=== PATIENT | female | born 1965 | race Caucasian/White ===

== ENCOUNTER 2020-04-12 19:37 | Observation (INO) | payer OTHER, SELFPAY ==
[2020-04-12 18:18] VITALS: BMI 26.0
[2020-04-12 18:20] VITALS: BP 115/63; PULSE 66; RESP 18; TEMP 36.2; O2SAT 97
[2020-04-12 18:33] VITALS: BMI 26.0
--- NOTE | 2020-04-12 18:49 | EKG12_ITS ---
Test Reason : CP ADMISSION Blood Pressure : / mmHG Vent. Rate : 069 BPM Atrial Rate : 069 BPM P-R Int : 120 ms QRS Dur : 084 ms QT Int : 422 ms P-R-T Axes : 052 -13 012 degrees QTc Int : 452 ms Normal sinus rhythm with sinus arrhythmia Septal infarct , age undetermined Abnormal ECG No previous ECGs available Confirmed by JORGE BLANKENSHIP, WILMAR ([id number]), editor news ROQUE FERREIRA ([id number]) on 04/16/2020 9:17:32 AM Referred By: Malathi Blackman Confirmed By:KEREN PATEL MD
[2020-04-12 19:00] VITALS: PULSE 60
--- NOTE | 2020-04-12 19:28 | HP.PCM_ITS ---
History of Present Illness Date of Admission: 04/12/20 Chief Complaint: chest pain The patient is a 54 year old F with a past medical history of hyperlipidemia. She was admitted as a direct transfer from outside hospital on 04/12/2020 with a complaint of chest pain. Chest pain had been going on for a few days and gradually worsening. It was pressure-like, retrosternal, with no aggravating factors were relieved by rest and sublingual nitro. Has not had such symptoms before but was worried because she has a strong family history of heart disease on her paternal side and also has a history of smoking. On admission, vitals were essentially unremarkable and she was saturating at 97% on room air. Initia l troponin done at outside hospital was negative. She was transferred for cardiac workup. She is being admitted to be managed for chest pain, to r/o ACS [] Past Medical History Allergies No Known Allergies Allergy (Verified 04/12/20 18:23) Surgical History: no surgical history Psychiatric History: No pertinent psych hx NATIONAL ACCOUNT REPRESENTATIVE History: No pertinent NATIONAL ACCOUNT REPRESENTATIVE history Lives: With Family Smoking Status: Current every day smoker Tobacco Use: Cigarettes Alcohol: Occasional Drugs: None - *Family History Paternal History Items: Cancer, High Cholesterol, Heart Disease, Hypertension Maternal History Items: Hypertension Review of Systems Constitutional: Denies: Chills, Fever, Malaise, Weakness, Weight Change Eyes: Denies: Blurred vision HEENT: Denies: Head Aches, Sinus Congestion, Sinus Drainage Cardiovascular: Reports: Chest Pain, Chest Pressure. Denies: Chest Tightness, Edema, Heaviness, Light Headedness, Orthopnea, Palpitations, Paroxysmal Noc. Dyspnea Respiratory: Denies: Cough, Shortness of Breath, Shortness of breath at rest, Shortness of breath upon exertion, Sputum production Gastrointestinal: Denies: Abdominal Pain, Nausea, Vomiting Genitourinary: Denies: Dysuria Musculoskeletal: Denies: Joint Pain, Joint Tenderness Skin: Denies: Rash, Wounds Neurological: Denies: Numbness, Tingling, Focal weakness Psychiatric: Denies: Anxiety, Depression, Homicidal Ideations, Suicidal Ideations Hematologic/ Lymphatic: Denies: Easy Bruising, Easy Bleeding VTE Information - Inpt Only VTE Present on Admission: No VTE Pharm Prophylaxis ordered?: Yes - Physical Exam Vitals/I&O's: Vital Signs Temp Pulse Resp BP Pulse Ox 97.2 F L 66 18 115/63 97 04/12/20 18:20 04/12/20 18:20 04/12/20 18:20 04/12/20 18:20 04/12/20 18:20 Oxygen Delivery Method Room Air Weight: 147 lb Body Mass Index (BMI) 26.0 General: Alert, Oriented x3, Cooperative HEENT: Atraumatic, PERRLA, EOMI, Normocephalic Oral: Moist Mucosa Neck: Supple, No JVD, Negative Carotid Bruits Lungs: Clear to auscultation, Normal air movement, No rhonchi, No wheeze, No rales Cardiovascular: Regular rate, Regular Rhythm, Normal S1, Normal S2, No murmurs Abdomen: Bowel Sounds Present, Soft, Non Tender, Non-Distended, No Hepato- splenomegaly Extremities: No clubbing, No cyanosis, No edema, Capillary Refill Less than 3 Seconds Skin: No rashes, No breakdown Musculoskeletal: No Tenderness to Palpation of Joints or Extremities Lymphatic: No Cervical, Supraclavicular, or Inguinal Adenopathy Neurological: Cranial nerves II-XII grossly intact Psych/Mental Status: Normal Affect, Appropriate, Alert and oriented to time, place, person, mood and affect Current Medications Sodium Chloride () 10 - 40 ml IV UD PRN PRN Reason: SALINE FLUSH Assessment/Plan 54 y/o admitted with a complaint of chest pain to r/o ACS 1. Chest pain rule out ACS. * admit To PCU with telemetry * Cycle troponins x3. EKG done on admission showed no acute ST changes and showed normal sinus rhythm. * Sublingual nitroglycerin PRN. P.o. aspirin 81 mg daily. * For stress test tomorrow if troponins are negative. * 2. Hyperlipidemia * She was told she has hyperlipidemia but she is not on any medication for it. * Check lipid panel. * 3. Nicotine dependence: Smokes about 1 pack daily. Counseled to quit. Nicotine patch 21 mg daily. DVT prophylaxis: SCDs CODE STATUS: Full code * Patient counseled extensively about different types of CODE STATUS including full code, DNR CCA and DNR CCA. Patient elects to be full code. Total zwii-ge-axmy time 17 minutes. OBSV E&M: 85684 Initial observation care L2 Procedures: 46827 Advncd Care Plan 30 Min
[2020-04-12] MEDS: oxyCODONE 5 MG Tablet PO (20:48)
[2020-04-12 22:02] VITALS: BP 117/49; PULSE 77; RESP 18; TEMP 36.6; O2SAT 97
[2020-04-12] MEDS: MELATONIN 3 MG TABLET PO (22:06)
[2020-04-13 01:57] LABS: Absolute Lymphocyte Count 2.85 X10^3/uL (0.83-4.51); Basophil# 0.06 X10^3/uL; Basophil% 0.7 % (0-1); Eosinophil# 0.22 X10^3/uL; Eosinophils% 2.5 % (0-5); Hematocrit 37.2 % (37-47); Hemoglobin 12.2 g/dL (12.0-15.0); Lymphocyte # 2.85 X10^3/ul (4.0); Lymphocyte % 32.4 % (19-41); Mean Corp Hgb Conc 32.8 g/dL (32-36); Mean Corpuscular Hgb 30.2 pg (27.0-32.0); Mean Corpuscular Volume 92.1 fL (81-99); Mean Platelet Vol. 11.2 fl (6.2-12.0); Monocyte# 0.67 X10^3/uL; Monocyte% 7.6 % (0-10); NRBC Flagged by Analyzer 0 % (0-5); Neutrophil # 4.96 X10^3/uL (2.7-7.7); Neutrophil % 56.5 % (47-70); Platelet Count 269 K/mm3 (150-450); RBC Distribution Width CV 12.4 % (11.6-14.6); RBC Distribution Width SD 41.4 fl (35.1-43.9); Red Blood Count 4.04 M/mm3 (4.2-5.4); White Blood Count 8.8 K/mm3 (4.4-11.0)
[2020-04-13] MEDS: oxyCODONE 5 MG Tablet PO (01:57)
[2020-04-13 02:07] LABS: Anion Gap 5 (5-15); BUN 14 mg/dL (7-18); BUN/Creat Ratio 21.5 RATIO (10-20); Calcium,Total 8.5 mg/dL (8.5-10.1); Chloride 110 mmol/L (98-107); Creatinine, Serum 0.65 mg/dL (0.55-1.02); EST Glomerular Filtration Rate 100 mL/min (>60); Est Glom Filt Rate - Afr Amer 121 mL/min (>60); Glucose 119 mg/dL (74-106); Potassium 3.7 mmol/L (3.5-5.1); Sodium Level 141 mmol/L (136-145)
[2020-04-13 03:00] VITALS: PULSE 59
[2020-04-13 04:00] VITALS: BP 112/56; PULSE 60; RESP 18; TEMP 36.8; O2SAT 96
--- NOTE | 2020-04-13 05:55 | EKG12_ITS ---
Test Reason : C.P. ROUTINE A.M. Blood Pressure : / mmHG Vent. Rate : 061 BPM Atrial Rate : 061 BPM P-R Int : 140 ms QRS Dur : 084 ms QT Int : 424 ms P-R-T Axes : 059 -20 026 degrees QTc Int : 426 ms Normal sinus rhythm Septal infarct , age undetermined Abnormal ECG When compared with ECG of 12-APR-2020 19:03, MANUAL COMPARISON REQUIRED, DATA IS UNCONFIRMED Confirmed by JORGE BLANKENSHIP, WILMAR ([id number]), news assignment editor ROQUE FERREIRA ([id number]) on 04/16/2020 9:17:14 AM Referred By: Malathi Blackman Confirmed By:KEREN PATEL MD
[2020-04-13 06:52] VITALS: BP 145/75; PULSE 63; PULSE 66; RESP 20; TEMP 36.8; O2SAT 99
[2020-04-13] MEDS: 0.9% Saline Lock 10 ML Syringe IV (06:57)
[2020-04-13] MEDS: Ondansetron 4 MG/2 ML Vial IV (06:58)
[2020-04-13] MEDS: Aspirin E.C. 81 MG Tablet PO (07:00)
--- NOTE | 2020-04-13 12:31 | STRESSREP_ITS ---
Stress Test Report Date: 04-13-2020 Procedure: Exercise tolerance test/imaging study Indications: Chest pain Consent: Per the patient Procedure: The patient exercised on a Kaleb protocol for 8 minutes and 30 seconds completing Stage II and 2 minutes and 30 seconds of Stage III achieving a peak heart rate of 133 bpm (80 % predicted maximal heart rate) with a peak blood pressure 170/72 mmHg and a peak MET capacity of 9 METs. The baseline ECG demonstrated sinus rhythm; anteroseptal CO pattern of indeterminate age cannot be excluded. The peak exercise ECG demonstrated somatic/motion artifact with [id number] ST segment variability. There were no cardiac dysrhythmias pretest, during exercise, or recovery. The functional capacity was considered good. There was chest discomfort pretest, during exercise, and recovery. The examination was discontinued secondary to dyspnea. Impression: 1. Technically adequate (percent predicted maximal heart rate greater than 85%) exercise tolerance test 2. Peak exercise ECG with somatic/motion artifact with [id number] ST segment variability 3. There were no cardiac dysrhythmias pretest, during exercise, or recovery 4. Nuclear images pending Myocardial perfusion imaging study: Technique: The patient was injected with 12.0 mCi of technetium 99m Cardiolite and subsequently rest SPECT Cardiolite nuclear imaging was obtained in the horizontal long, vertical long, and short axis views. The patient exercised on a Kaleb protocol for 8 minutes and 30 seconds completing Stage II and 2 minutes and 30 seconds of Stage III achieving a peak heart rate of 133 bpm (80 % predicted maximal heart rate) with a peak blood pressure 170/72 mmHg and a peak MET capacity of 9 METs. The patient was injected with 33.3 mCi of technetium 99m Cardiolite and subsequently stress SPECT Cardiolite nuclear imaging was obtained in the horizontal long, vertical long, and short axis views. A gated Cardiolite study at peak stress was obtained. Interpretation: Rest and stress SPECT Cardiolite nuclear imaging status post realignment, normalization, and attenuation correction, demonstrates the appearance of extrac ardiac/gastrointestinal tracer uptake near the inferior segments which appears to be somewhat more prominent at rest as opposed to stress and otherwise appears to demonstrate relative uniform tracer uptake and myocardial perfusion appearing within normal limits. There is end systolic thickening and brightening. The gated Cardiolite study demonstrates myocardial thickening and inward wall motion. The reported LVEF is 83 %. Impression: 1. Rest and stress SPECT Cardiolite nuclear imaging demonstrate myocardial perfusion changes appearing compatible with extracardiac/gastrointestinal tracer uptake near the inferior segments which appears to be somewhat more prominent at rest as opposed to stress and otherwise appears to demonstrate relative uniform tracer uptake and myocardial perfusion appearing within normal limits. 2. The gated Cardiolite study reports an LVEF of 83 %. This note was generated with [employer] software. It may contain incorrect words, spelling, and punctuation that were not noted in checking the note before signing.
[2020-04-13 14:00] VITALS: BP 134/76; PULSE 65; RESP 18; TEMP 36.6; O2SAT 94
--- NOTE | 2020-04-13 14:19 | DCINST_ITS ---
You will use the following diet at home:: No restrictions Your food should be the consistency of: Regular Your liquids should be the consistency of: Regular/Thin Discharge Activity: Return to Normal Activity Allergies/Adverse Reactions: Allergies No Known Allergies Allergy (Verified 04/12/20 18:23) Medications to take at Discharge Acetaminophen [Tylenol Tablet] 650 mg PO Q6H PRN PRN tab 04/13/20 Primary Care Physician: Care Physician,No Primary [Primary Care Provider] - Please follow up with your Primary Care Physician in: 1-2 weeks Test Results: Test results from this visit will be discussed in further detail at your follow- up appointment, if applicable. Proposed Discharge Date: 04/13/20
--- NOTE | 2020-04-13 14:20 | PCM.DC.SUM ---
<Pool Alejandro - Last Filed: 04/13/20 14:20> Discharge Date and Diagnosis Date of Admission: 04/12/20 Date of Discharge: 04/13/20 - Primary Discharge Diagnosis Acute Problems: Chest pain and back pain - musculoskeletal Hospital Course and Treatment Imaging Results: 04/13/20 05:55 Nuclear Stress Test - Treadmil [NM] AM (NON MEDS) Impression: 1. Rest and stress SPECT Cardiolite nuclear imaging demonstrate myocardial perfusion changes appearing compatible with extracardiac/gastrointestinal tracer uptake near the inferior segments which appears to be somewhat more prominent at rest as opposed to stress and otherwise appears to demonstrate relative uniform tracer uptake and myocardial perfusion appearing within normal limits. 2. The gated Cardiolite study reports an LVEF of 83 %. Operations: None Procedures: Stress test Summary of Care Provided: Hospital Course: The patient is a 54 year old F with hx smoking, HLD for which she does not take meds, and family hx of heart disease who presented to the ER with c/o midsternal chest pain radiating into the left arm and jaw, not associated with SOB, dizziness, nausea, or sweating, that came on at rest and had no change with activity. She also had some back pain and a headache. She had negative troponin and Neg EKG. She was admitted for CP workup. Trop was neg x3, no events on tele, and stress test the following day was negative. She was felt to have musculoskeletal pain and discharged home in stable condition to follow up with her PCP In 1-2 weeks. This patient was seen by Pool Alejandro PA-C under the supervision of Doctor Mercedez. [] - Physical Exam Vitals/I&O's: Vital Signs Temp Pulse Resp BP Pulse Ox 98.3 F 63 20 H 145/75 H 99 04/13/20 06:52 04/13/20 06:52 04/13/20 06:52 04/13/20 06:52 04/13/20 06:52 Oxygen Delivery Method Room Air Weight: 147 lb Body Mass Index (BMI) 26.0 Intake and Output for Last 24 Hours 04/11/20 04/12/20 04/13/20 23:59 23:59 23:59 Intake Total 480 / 480 Balance 480 / 480 General: Alert, Oriented x3, Cooperative HEENT: Atraumatic, PERRLA, EOMI, Normocephalic Neck: Supple, No JVD, Negative Carotid Bruits Lungs: Clear to auscultation, Normal air movement Cardiovascular: Regular rate, No murmurs Abdomen: Bowel Sounds Present, Soft, Non Tender Extremities: No edema, Capillary Refill Less than 3 Seconds Skin: No rashes, No breakdown Musculoskeletal: No Tenderness to Palpation of Joints or Extremities Neurological: Cranial nerves II-XII grossly intact Psych/Mental Status: Normal Affect, Appropriate, Alert and oriented to time, place, person, mood and affect Laboratory Results 04/12/20 20:00: Troponin I < 0.015 04/12/20 22:29: Troponin I < 0.015 04/13/20 01:42: Troponin I < 0.015 04/13/20 01:42: WBC 8.8, RBC 4.04 L, Hgb 12.2, Hct 37.2, MCV 92.1, MCH 30.2, MCHC 32.8, RDW Std Deviation 41.4, RDW Coeff of Estrellita 12.4, Plt Count 269, MPV 11.2, Immature Gran % (Auto) 0.300, Neut % (Auto) 56.5, Lymph % (Auto) 32.4, [place] % (Auto) 7.6, Eos % (Auto) 2.5, Baso % (Auto) 0.7, Absolute Neuts (auto) 5.0, Absolute Lymphs (auto) 2.85, Nucleated RBC % 0 04/13/20 01:42: Sodium 141, Potassium 3.7, Chloride 110 H, Carbon Dioxide 26.0, Anion Gap 5, BUN 14, Creatinine 0.65, Estim Creat Clear Calc 80.90, Est GFR (MDRD) Af Amer 121, Est GFR (MDRD) Non-Af 100, BUN/Creatinine Ratio 21.5 H, Glucose 119 H, Calcium 8.5 Current Medications Acetaminophen (Tylenol) 650 mg PO Q6H PRN PRN PRN Reason: Pain Score 1-10/Temp > 100.7 F Aspirin (Ecotrin) 81 mg PO DAILY@0800 [facility] Last Admin: 04/13/20 07:00 Dose: 81 mg Documented by: Dextrose (D50w Syringe) 0 gm IV X1 PRN; Protocol PRN Reason: Hypoglycemia Glucagon () 1 mg IM .X1 PRN PRN Reason: Hypoglycemia Melatonin (Melatonin) 3 mg PO QHS PHILIP[facility] Last Admin: 04/12/20 22:06 Dose: 3 mg Documented by: Nicotine (Nicoderm Cq (Pbkc)) 21 mg TRANSDERM. DAILY [facility] Nitroglycerin (Nitrostat) 0.4 mg SUBLINGUAL Q5M PRN PRN Reason: CARDIAC/CHEST PAIN Ondansetron HCl (Zofran) 4 mg IV Q8H PRN PRN PRN Reason: NAUSEA/VOMITING Last Admin: 04/13/20 06:58 Dose: 4 mg Documented by: Oxycodone HCl (Oxyir) 5 mg PO Q4H PRN PRN PRN Reason: Pain Score 4-5/10 Last Admin: 04/13/20 01:57 Dose: 5 mg Documented by: Sodium Chloride () 10 - 40 ml IV UD PRN PRN Reason: SALINE FLUSH Last Admin: 04/13/20 06:57 Dose: 20 ml Documented by: Discharge Diet: Low fat/ Low Cholesterol, 2000 mg Sodium Diet Discharge Activity: Return to Normal Activity Home Medications: Medications to take at Discharge Acetaminophen [Tylenol Tablet] 650 mg PO Q6H PRN PRN tab 04/13/20 Primary Care Physician: Care Physician,No Primary [Primary Care Provider] - Please follow up with your Primary Care Physician in: 1-2 weeks Disposition: Home Minutes spent on discharge:: 35 Patient Condition:: Stable Medical Necessity - Tobacco Use Smoking Status: Current every day smoker Tobacco Use: Cigarettes Meaningful Use Info Meaningful Use Diagnoses (Choose all that apply): None applicable <Lex Newsome - Last Filed: 04/13/20 14:56> Hospital Course and Treatment Summary of Care Provided: This patient was seen in conjunction with Pool Alejandro PA-C . I have independently interviewed and examined the patient and reviewed pertinent historical, laboratory, and other data. Please refer to Pool Alejandro PA-C note for details of this patient's presentation, findings, and recommendations. I have reviewed Pool Alejandro PA-C note and concur with documented findings. In brief, patient is a 54-year-old lady admitted with chest pain. Patient was placed on a monitored bed where IA was ruled out with serial cardiac enzymes subsequently underwent a nuclear stress test which was negative for stress-induced ischemia. Patient was discharged home instructed to follow-up with her PCP for subsequent work-up including GI work-up Hospital course: As documented above - Physical Exam Vitals/I&O's: Vital Signs Temp Pulse Resp BP Pulse Ox 97.8 F 65 18 134/76 H 94 04/13/20 14:00 04/13/20 14:00 04/13/20 14:00 04/13/20 14:00 04/13/20 14:00 Oxygen Delivery Method Room Air Weight: 66.678 kg Body Mass Index (BMI) 26.0 Intake and Output for Last 24 Hours 04/11/20 04/12/20 04/13/20 23:59 23:59 23:59 Intake Total 480 / 480 Balance 480 / 480 Laboratory Results 04/12/20 20:00: Troponin I < 0.015 04/12/20 22:29: Troponin I < 0.015 04/13/20 01:42: Troponin I < 0.015 04/13/20 01:42: WBC 8.8, RBC 4.04 L, Hgb 12.2, Hct 37.2, MCV 92.1, MCH 30.2, MCHC 32.8, RDW Std Deviation 41.4, RDW Coeff of Estrellita 12.4, Plt Count 269, MPV 11.2, Immature Gran % (Auto) 0.300, Neut % (Auto) 56.5, Lymph % (Auto) 32.4, [place] % (Auto) 7.6, Eos % (Auto) 2.5, Baso % (Auto) 0.7, Absolute Neuts (auto) 5.0, Absolute Lymphs (auto) 2.85, Nucleated RBC % 0 04/13/20 01:42: Sodium 141, Potassium 3.7, Chloride 110 H, Carbon Dioxide 26.0, Anion Gap 5, BUN 14, Creatinine 0.65, Estim Creat Clear Calc 80.90, Est GFR (MDRD) Af Amer 121, Est GFR (MDRD) Non-Af 100, BUN/Creatinine Ratio 21.5 H, Glucose 119 H, Calcium 8.5 Current Medications Acetaminophen (Tylenol) 650 mg PO Q6H PRN PRN PRN Reason: Pain Score 1-10/Temp > 100.7 F Aspirin (Ecotrin) 81 mg PO DAILY@0800 [facility] Last Admin: 04/13/20 07:00 Dose: 81 mg Documented by: Dextrose (D50w Syringe) 0 gm IV X1 PRN; Protocol PRN Reason: Hypoglycemia Glucagon () 1 mg IM .X1 PRN PRN Reason: Hypoglycemia Melatonin (Melatonin) 3 mg PO QHS [facility]ILIP[facility] Last Admin: 04/12/20 22:06 Dose: 3 mg Documented by: Nicotine (Nicoderm Cq (Pbkc)) 21 mg TRANSDERM. DAILY [facility] Nitroglycerin (Nitrostat) 0.4 mg SUBLINGUAL Q5M PRN PRN Reason: CARDIAC/CHEST PAIN Ondansetron HCl (Zofran) 4 mg IV Q8H PRN PRN PRN Reason: NAUSEA/VOMITING Last Admin: 04/13/20 06:58 Dose: 4 mg Documented by: Oxycodone HCl (Oxyir) 5 mg PO Q4H PRN PRN PRN Reason: Pain Score 4-5/10 Last Admin: 04/13/20 01:57 Dose: 5 mg Documented by: Sodium Chloride () 10 - 40 ml IV UD PRN PRN Reason: SALINE FLUSH Last Admin: 04/13/20 06:57 Dose: 20 ml Documented by: OBSV E&M: [id number] Observation care discharge
[2020-04-13 14:55] VITALS: PULSE 70
== END 2020-04-13 14:26 | disposition home or self-care (01) ==
PROVIDERS: Admitting Provider Student in an Organized Health Care Education/Training Program; Referring Provider Student in an Organized Health Care Education/Training Program; Visit Provider Internal Medicine
DX: R07.89 Other chest pain (principal); E78.5 Hyperlipidemia, unspecified; F17.210 Nicotine dependence, cigarettes, uncomplicated; R68.84 Jaw pain; M79.602 Pain in left arm; M54.9 Dorsalgia, unspecified; R51 Headache; Z82.49 Family history of ischemic heart disease and other diseases of the circulatory system
CPT/HCPCS: 36415; 78452; 80048; 84484; 85025; 93005; 93017; 96374; 99218; 99406; A9500; A4216; G0378; G0379; J2405